=== PATIENT | female | born 1970 | race Caucasian/White ===

== ENCOUNTER → 2021-09-06 10:21 | Outpatient (CLI) | payer OTHER, SELFPAY ==
[2021-09-06 11:33] LABS: COVID19 -Nasal RAPID Negative (Negative)
== END ==
PROVIDERS: Visit Provider Physician Assistant
DX: Z20.822 Contact with and (suspected) exposure to COVID-19 (principal)
CPT/HCPCS: 87635

== ENCOUNTER 2021-09-09 08:49 | Observation (INO) | payer OTHER, SELFPAY ==
[2021-09-05 12:42] VITALS: BMI 37.1
[2021-09-09] VITALS (14 sets, daily range): BP systolic 105–147; BP diastolic 65–97; PULSE 79–98; RESP 12–23; TEMP 35.8–36.6; O2SAT 84–98; BMI 37.1
[2021-09-09] MEDS: LACTATED RINGERS 1,000 ML 42 ML IV ×3 (09:35→15:09)
--- NOTE | 2021-09-09 10:26 | PM.PREOP ---
Pre-operative Note COVID-19 COVID-19 status: Negative Result date/Date tested (Pos, Neg/Pending): 09/07/21 Interval Note History & Physical reviewed/Exam performed by Physician: Yes Changes to H&P: No
[2021-09-09] MEDS: CEFAZOLIN 2 GM/20 ML SYRINGE IV ×2 (11:15→19:00)
--- NOTE | 2021-09-09 11:44 | SUR.OPER ---
Prone on spine table, head in foam head support, padded chest and pelvic supports, gel pad at knees, lower legs supported by pillows; nipples, genitalia and toes free of pressure, arms secured on foam padded arm boards at <90 degrees abduction. Tape over blanket at thigh secured to table.
[2021-09-09] MEDS: BUPIVACAINE LIPOSOME 266 MG/20 ML VIAL INJ (11:51)
[2021-09-09] MEDS: BUPIVACAINE 0.25% (PF) 30 ML, EPINEPHrine 0.3 MG INJ (11:52)
--- NOTE | 2021-09-09 13:43 | DI.RAD.S_ITS ---
PROCEDURE: XR LUMBAR SPINE 2-3V INDICATIONS: L4-5 TLIF TECHNIQUE: 3 fluoroscopic images of the lower lumbar spine. COMPARISON: [facility] Outside Film, CR, XR LUMBAR SPINE WITH OBLIQUES, 04/08/2021, 11:30. FINDINGS: Posterior element fixation hardware with discectomy is seen at L4-5. IMPRESSION: Postsurgical changes detailed above. Dictated by: Saurav Antoine M.D. on 09/09/2021 at 14:26 Approved by: Saurav Antoine M.D. on 09/09/2021 at 14:27
--- NOTE | 2021-09-09 13:52 | PM.OP.1 ---
Operative Date/Time/Diagnoses Date of procedure: 09/09/21 Time of procedure: 11:00 Pre-op diagnosis: 1. L4-5 spinal stenosis with neurogenic claudication 2. Lumbar spondylosis with radiculopathy Post-op diagnosis: same Procedure & Clinicians Procedure: 1. L4-5 Postero-lateral and posterior interbody fusion 2. L4-5 interbody cage placement. 3. L4-5 decompressive laminectomy with bilateral facetecomies 4. L4-5 Posterior non-segmental instrumentation 5. Woodbine of bone marrow from iliac crest 6. Utilization of microsurgical technique and operating microscope Same procedure as scheduled: Yes Indications: Patient has been having chronic back pain and worsening lumbar radiculopathy. Patient failed multiple conservative management with worsening pain weakness and numbness in her lower extremity. Patient has been having difficulty performing activity of daily living. After discussing risks benefits of treatment options, patient elected proceed with surgery. Surgeon: Katarina Brock Chief Fundraising Officer: Janette Tejeda Click Yes if Unassisted: No Anesthesia Type: General Operative Notes Closure Type: primary Specimen(s): none sent Prosthetic devices, grafts, tissues, transplants, or devices: Globus revolve screws, Rise cage Estimated Blood Loss (mL): 50 Blood products transfused: none Procedure in detail: Patient was seen in the preoperative area. Risks and benefits of the surgery was discussed with the patient. Informed consent was obtained from the patient and placed in the chart. Surgical site was marked. Patient was taken to the operative room. General anesthesia was administered. Prophylactic antibiotic was given to the patient less than 30 min before the incision was made. Patient was placed into a prone position on the Dheeraj table. Patient's back was then prepped and draped in the sterile fashion. Time-out was performed at this time. Using AP and lateral C-arm imaging the interval between L4-5 was identified and marked on patient's back. A 2 inch incision 2 in from midline was made on the left side first. The fascia was incised in line with skin incision. Globus MARS retractors was placed inside the incision and docked onto the L4 lamina. Using microsurgical technique and operating microscope, a L4 laminectomy and L4-5 facetectomy was performed using a Kerrison rongeur. Patient was found have severe central and neural foramen stenosis which was fully decompressed after the laminectomy and facetectomy was completed. The disc space at L4-5 was identified. And a total diskectomy was performed at L4-5 level. The endplates were decorticated using a rasp and shaver. The total diskectomy and decortication was performed at L4-5 level in order to to accomplish a L4-5 fusion. The local bone from the laminectomy and facetectomy was saved for local bone grafting. After the total diskectomy and decortication was completed, Trifecta bone graft material was combined with local bone that was harvested earlier. At this time, a separate skin is incision was made over the iliac crest. A Jamshidi needle was inserted into the iliac crest through a separate skin incision. 5 cc of bone marrow aspiration was obtained through the separate skin incision using a Jamshidi needle from the iliac crest. The bone marrow aspiration was combined with local bone and the Trifecta bone grafting material. The bone grafting material was placed into the L4-5 interbody space along with a expandable cage. The cage was expanded to its maximum height using the torque limiting screwdriver. At this time a mirror image incision was made on the right side. The fascia was incised in line with the skin incision. Globus MARS retractor was inserted and docked onto the L4-5 posterolateral gutter. Using the power drill, posterior-lateral decortication was performed at L4-5 level until bleeding cortical bone was identified. The remaining bone grafting material was placed into the L4-5 posterior lateral gutter he order to accomplish posterolateral fusion at the L4-5 level. Using the double C-arm technique, pedicle screws were placed into the L4-5 pedicles bilaterally. This was done by placing the Jamshidi needle into the pedicles, then placing the guidewires over the Jamshidi needle, and finally placing the cannulated screws over the guidewires bilaterally. After the pedicle screws were placed, 2 titanium rods was locked into the heads of the pedicle screws using locking caps and torque limiting screwdriver. After all the hardware was placed, and confirmed with AP and lateral C-arm imaging, the wound was then irrigated with sterile normal saline and packed with Ray-Rex gauze for 3 min to accomplish hemostasis. After the gauze was removed the deep fascia was closed with #1 Vicryl suture. The subcutaneous layer was closed with 2-0 Vicryl. The skin was closed with skin lillian. Patient tolerated the procedure well. There were no complications.
[2021-09-09] MEDS: HYDROMORPHONE 2 MG INJ IV ×3 (14:10→14:45)
[2021-09-09] MEDS: LORazepam 2 MG/ML INJ 0.25 MG IV (14:32)
[2021-09-09] MEDS: hydrOXYzine 50 MG/ML INJ 25 MG IM (15:03)
[2021-09-09] MEDS: OXYCODONE/ACETAMINOPHEN 5/325 TABLET 1 TAB PO ×2 (15:15→15:44)
--- NOTE | 2021-09-09 15:59 | SUR.PHASEI ---
1349 Hrs; Pt arrives breathing unnassisted but bradypneic. Report recieved. Pt placed on 6 L simple mask for sats below 90%.
[2021-09-09] MEDS: OXYCODONE IR 5 MG TABLET 10 MG PO ×2 (16:59→21:07)
[2021-09-09] MEDS: SODIUM CHLORIDE 0.9% 1,000 ML 100 ML IV (16:59)
[2021-09-09] MEDS: HYDROMORPHONE 0.5 MG INJ IV (17:00)
[2021-09-09] MEDS: hydrOXYzine pamoate 25 MG CAPSULE PO (18:11)
[2021-09-09] MEDS: SENNOSIDES 8.6 MG TABLET 17.2 MG PO (21:07)
[2021-09-09] MEDS: DOCUSATE 100 MG CAPSULE PO (21:07)
[2021-09-10] MEDS: hydrOXYzine pamoate 25 MG CAPSULE PO ×5 (00:21→20:23)
[2021-09-10] MEDS: OXYCODONE IR 5 MG TABLET 10 MG PO ×8 (00:21→23:10)
[2021-09-10 00:30] VITALS: BP 107/66; PULSE 67; RESP 17; TEMP 36.2; O2SAT 93
[2021-09-10] MEDS: CEFAZOLIN 2 GM/20 ML SYRINGE IV (02:37)
[2021-09-10 03:15] VITALS: BP 114/66; PULSE 79; RESP 18; TEMP 36.4; O2SAT 96
[2021-09-10] MEDS: SODIUM CHLORIDE 0.9% 1,000 ML 100 ML IV (03:39)
[2021-09-10] MEDS: LEVOTHYROXINE 112 MCG TABLET PO (06:31)
[2021-09-10] MEDS: PANTOPRAZOLE DR 20 MG TABLET PO (06:31)
[2021-09-10 08:00] VITALS: BP 116/69; PULSE 81; RESP 17; TEMP 36.7; O2SAT 96
--- NOTE | 2021-09-10 08:09 | PM.PNPO.1 ---
Subjective Subjective Date Patient Seen: 09/10/21 Time Patient Seen: 08:09 Interval history: The patient is complaining of moderate low back pain this morning. She notes at the current pain medications are working well. She has had a longstanding history of mobility issues and has not worked with physical therapy yet. Denies any new numbness or tingling. No nausea or vomiting. No fevers, chills, night sweats. Exam Vital Signs (past 8 hours): - 09/10/21 00:30 09/10/21 03:15 Temperature 97.2 F L 97.5 F L Pulse Rate 67 79 Respiratory Rate 17 18 Blood Pressure 107/66 114/66 Pulse Oximetry 93 96 Oxygen Delivery Method Room Air Oxygen Flow Rate 0 Narrative Exam Narrative: Pleasant 51-year-old female, resting comfortably in bed, no acute distress. Bilateral lower extremity motor functions: Grossly intact to light touch, motor function is grossly Intact, calves are soft and nontender to palpation PFSH Medical History Easy bruisability GERD (gastroesophageal reflux disease) Hearing impaired Hypothyroid Osteoarthritis PONV (postoperative nausea and vomiting) Pre-diabetes Sciatica Spinal stenosis of lumbar region Surgical History Hx of dilation and curettage Hx of thumb surgery Status post unicompartmental knee replacement, right Social History household members: spouse and children Smoking Status: Former smoker alcohol intake: current Assessment & Plan Post-op Postoperative Procedures: Procedures Operation Date: 09/09/21 10:45 Actual Procedure Side Surgeon p L4-5 TLIF Katarina Brock MD Postoperative day: 1 Postoperative status narrative: Stable status post TLIF Postoperative plan narrative: -mobilize with PT. Limit bending, lifting, twisting. Weightbearing as tolerated with front wheel walker -continue with current pain regimen -possible DC home today, depending on physical therapy clearance and pain control. Will check on her later this afternoon Quality VTE Deep Vein Thrombosis/Pulmonary Embolism Present on Admission: No
[2021-09-10] MEDS: DOCUSATE 100 MG CAPSULE PO ×2 (08:50→20:23)
[2021-09-10] MEDS: HYDROMORPHONE 0.5 MG INJ IV ×3 (08:50→22:53)
--- NOTE | 2021-09-10 09:46 | PT.IIE ---
Current Diagnoses Spinal stenosis, lumbar region with neurogenic claudication (09/09/21) Surgery Performed Operation Date: 09/09/21 10:45 Actual Procedures p L4-5 TLIF - Katarina Brock MD Medical History (Last Reviewed 09/10/21 @ 08:11 by Janette Tejeda PA-C) Easy bruisability GERD (gastroesophageal reflux disease) Hearing impaired Hypothyroid Osteoarthritis PONV (postoperative nausea and vomiting) Pre-diabetes Sciatica Spinal stenosis of lumbar region Physical Therapy Inpatient Evaluation/Re-Eval M1 PT/OT-IP Prior Functional Status Start: 09/10/21 12:48 Freq: NEEDED Status: Active Protocol: Document 09/10/21 09:46 AB (Rec: 09/10/21 12:58 AB [email or web address]) Medical Review Prior Functional Status Medical History Reviewed Yes Communication able to make needs known Mobility and Gait pt stated that she is modified independent with all mobilities and ambulation using SPC but uses 2 SPC at night Social History Household Members spouse,children Living Arrangements House Number of Floors (Floors) Two Floors Number of Stairs To Enter/Railing? 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 Additional Social History Comment pt has a recliner couch that she plans to sleep on for ~ 1 week after d/c pt works as a [employer]a M2 PT-IP Current Condition Start: 09/10/21 12:48 Freq: NEEDED Status: Active Protocol: Document 09/10/21 09:46 AB (Rec: 09/10/21 12:58 AB [email or web address]) Physical Therapy Current Condition Current Condition Evaluation Date 09/10/21 Treatment Diagnosis s/p L4-5 TLIF; difficulty in walking Onset Date 09/09/21 M3 PT-IP Subjective Start: 09/10/21 12:48 Freq: NEEDED Status: Active Protocol: Document 09/10/21 09:46 AB (Rec: 09/10/21 12:58 AB [email or web address]) Subjective Physical Therapy Visit Type Type Initial Evaluation Visit Start Time 09:46 Visit Stop Time 10:17 Total Visit Minutes 31 Number of COMPOSITE TECHNICIAN Visits 0 Physical Therapy Visit Comments Patient Comments agreeable to do PT Therapy Pain Assessment Pain When Pain Assessed At Rest Pain Present Pain Present Pain Reported Location back Intensity 10 Scale Used Numeric (0 - 10) Pain Management Techniques Distraction,Modification of Treatment,Re-positioning, Timing of Activity with Medications M4 PT-IP Mobility and Gait Start: 09/10/21 12:48 Freq: NEEDED Status: Active Protocol: Document 09/10/21 09:46 AB (Rec: 09/10/21 12:58 AB [email or web address]) PT-Bed Mobility Assessment Rolling Level of Assist Maximal Assistance Supine to Sit Supine to Sit Maximum Assistance Sit to Supine Sit to Supine Maximum Assistance PT-Transfer Assessment Sit to and From Stand Sit to and from Stand Moderate Assistance,Maximum Assistance,1 Person Assistance ,Use of Upper Extremities Equipment Transfer Assistive Device Gait Belt,Front Wheeled Walker Orthotic/Prosthetic Devices or Brace: No Transfers Transfer Destination Bed Transfer Technique ambulated using FWW Transfer Ability Level of Assist Moderate Assistance,Maximum Assistance,1 Person Assistance ,Use of Upper Extremities Comments Mobility Comments pt using the toilet when PT came in. pt completed sit to stand from the toilet using grab bar max A and max cues. ambulated to EOB mod to max A and max cues. with shuffling gait. c/o 10/10 pain and L sided sciatica. pt is aware of her back precautions. completed sit to stand from EOB mod to max A and max cues and ambulated in room using FWW ~ 30 ft mod to max A. presents with decrease LE elevation and heavy UE use on FWW for support. ambulated back to EOB. demonstrated sit <>supine max A and cues. pt requested to just stay in bed and completed sit to supine max A and cues. positioned pt in bed. call light and table placed within reach. Caregiver training set up at 1 /130 pm this afternoon. Gait Assessment Gait Gait Assistance Required: Moderate Assistance,Maximum Assistance,1 Person Assist Distance (Feet) 30 Able to Maintain Weight Bearing Status Yes During Gait Assistive Devices Assistive Device Gait Belt,Front Wheeled Walker Orthotic/Prosthetic Devices or Brace: No Gait Deviations General Gait Pattern Antalgic,Decreased Stride Length,Decreased Feet Clearance,Step-to Gait Factors Limiting Gait Function Factors Limiting Gait Function Decreased Activity Tolerance, Decreased Strength,Limited Range of Motion,Pain,Poor Balance,Poor Safety Awareness PT-Balance Assessment Sitting Balance and Reactions Static Sitting Balance Ability Good Dynamic Sitting Balance Ability Good Standing Balance and Reactions Static Standing Balance Ability Fair Dynamic Standing Balance Ability Poor Device Used FWW M5 PT-IP Objective Assessments Start: 09/10/21 12:48 Freq: NEEDED Status: Active Protocol: Document 09/10/21 09:46 AB (Rec: 09/10/21 12:58 AB [email or web address]) Orientation Orientation/Cognition Level of Alertness Alert Orientation Name,Place,Situation Language Function Ability No Deficits Noted Safety Awareness Decreased Safety Awareness Memory Description Short Term Impaired Gross Range of Motion Lower Extremity ROM Assessment Within Functional Limits Strength Lower Extremity Strength Assessment Bilaterally Impaired Comments Strength Comments LLE: 3/5 RLE 4-/5 Sensation Assessment Sensation Gross Sensation WNL Muscle Tone Muscle Tone WNL Yes M6 PT-IP Treatment Start: 09/10/21 12:48 Freq: NEEDED Status: Active Protocol: Document 09/10/21 09:46 AB (Rec: 09/10/21 12:58 AB [email or web address]) Physical Therapy Treatment Education Education Provided Precautions,Weight Bearing Status,Post-Op Packet,Safety M7 PT-IP Assessment and Plan Start: 09/10/21 12:48 Freq: NEEDED Status: Active Protocol: Document 09/10/21 09:46 AB (Rec: 09/10/21 12:58 AB [email or web address]) PT Summary Assessment and Plan Potential Rehabilitation Potential Good Status of Condition at Evaluation Evolving Summary Impairments Pain,ROM,Strength,Balance, Coordination,Sensation,Tone, Cognition,Bed Mobility, Transfers,Gait,Activity Tolerance Assessment Summary pt requirng mod to max A with mobility using FWW. pt plans to go home and spouse to assist her. caregiver training set up for this afternoon ~ 1/130 pm. will continue to assess progress. pt also needs to complete stair climbing training prior to d/c. Goals Bed Mobility Goal Standby Assistance Transfer Goal Standby Assistance,Front Wheeled Walker Gait Goal Standby Assistance,Front Wheel Walker Gait Distance 200 Other Goals up/down 3 steps using SPC/BROOM STITCHER min A Days to Meet Goals 10 Frequency of Treatment Frequency Of Treatment Twice a Day Treatment Plan Physical Therapy Treatment Plan Bed Mobility Training,Transfer Training,Gait Training, Therapeutic Exercise,Balance Retraining,Post Op Education, Discharge Planning,Hot or Cold Pack,Neuromuscular Re-ed, Coordination Retraining,Manual Therapy Precautions Lumbar Precautions Log Roll,No Twisting,Limit Bending,Lifting Restriction of 10 lbs,Gait Belt above Incisional Area Recommendations To Nursing Amount of Assist Needed 1 Person Assist Discharge Recommendations PT Discharge Recommendations Home with 24/ Assist Available,Home Health Transportation Needs at Discharge Private Vehicle
[2021-09-10 11:00] VITALS: BP 116/74; PULSE 90; RESP 18; TEMP 37.1; O2SAT 98
[2021-09-10] MEDS: ACETAMINOPHEN 325 MG TABLET 650 MG PO (11:14)
--- NOTE | 2021-09-10 13:30 | PT.IPTN ---
Current Diagnoses Spinal stenosis, lumbar region with neurogenic claudication (09/09/21) Surgery Performed Operation Date: 09/09/21 10:45 Actual Procedures p L4-5 TLIF - Katarina Brock MD Physical Therapy Treatment Note M2 PT-IP Current Condition Start: 09/10/21 12:48 Freq: NEEDED Status: Active Protocol: Document 09/10/21 09:46 AB (Rec: 09/10/21 12:58 AB [email or web address]) Physical Therapy Current Condition Current Condition Evaluation Date 09/10/21 Treatment Diagnosis s/p L4-5 TLIF; difficulty in walking Onset Date 09/09/21 M3 PT-IP Subjective Start: 09/10/21 12:48 Freq: NEEDED Status: Active Protocol: Document 09/10/21 13:30 AB (Rec: 09/10/21 15:23 AB [email or web address]) Subjective Physical Therapy Visit Type Type Treatment Note Visit Start Time 13:30 Visit Stop Time 14:15 Total Visit Minutes 45 Number of SUPERVISOR BRAIDING Visits 0 Physical Therapy Visit Comments Patient Comments spouse in room with pt; pt is agreeable to do PT Therapy Pain Assessment Pain When Pain Assessed At Rest Pain Present Pain Present Pain Reported Location back Intensity 4 Scale Used 09/06 with mobility Pain Management Techniques Distraction,Modification of Treatment,Re-positioning, Timing of Activity with Medications M4 PT-IP Mobility and Gait Start: 09/10/21 12:48 Freq: NEEDED Status: Active Protocol: Document 09/10/21 13:30 AB (Rec: 09/10/21 15:23 AB [email or web address]) PT-Bed Mobility Assessment Rolling Level of Assist Minimal Assistance Supine to Sit Supine to Sit Minimal Assistance Sit to Supine Sit to Supine Minimal Assistance PT-Transfer Assessment Sit to and From Stand Sit to and from Stand Minimal Assistance Equipment Transfer Assistive Device Gait Belt,Front Wheeled Walker Orthotic/Prosthetic Devices or Brace: No Transfers Transfer Destination Toilet Transfer Technique ambulated Transfer Ability Level of Assist Minimal Assistance Comments Mobility Comments caregiver training conducted. educated on pt's back precautions/log roll bed mobility, use of safety belt and how to assist pt. pt completed log roll supine to sit min A and cued spouse on how to assist pt. spouse was able to put safety belt on pt. assisted pt with sit to stand and ambulated ~ 20 ft to the toilet [facility]. spouse was able to assist pt with ambulation and toileting needs . pt ambulated back to the EOB using FWW with spouse assisting. educated pt and spouse on stair climbing using SPC and SENIOR DATASTAGE DEVELOPER. pt ambulated to the platform step using FWW min A from spouse. completed up/down platform step x 2 sets mod to max A and max cues. pt ambulated back to the room using FWW min A. completed sit to supine min A with LE elevation and spouse assisted. positioned pt in bed. call light and table placed within reach. PT cued on how to assist pt. set up another caregiver training tomorrow at 930 am. Gait Assessment Gait Gait Assistance Required: Minimum Assistance Distance (Feet) 20 Able to Maintain Weight Bearing Status Yes During Gait Assistive Devices Assistive Device Gait Belt,Front Wheeled Walker Orthotic/Prosthetic Devices or Brace: No Gait Deviations General Gait Pattern Decreased Stride Length, Decreased Feet Clearance,Step- to Gait Factors Limiting Gait Function Factors Limiting Gait Function Decreased Activity Tolerance, Decreased Strength,Limited Range of Motion,Pain,Poor Balance,Poor Safety Awareness Stair Climbing Assessment Evaluation Level of Assist On Stairs Moderate Assistance,Maximal Assistance,1 Person Assistance Devices Stair Climbing Assistive Devices Straight Cane Technique/Endurance Stair Climbing Direction Ascend and Descend Stair Climbing Technique Step to Step Number of Steps Climbed 1 Stair Climbing Set # Repetitions (reps) 2 M5 PT-IP Objective Assessments Start: 09/10/21 12:48 Freq: NEEDED Status: Active Protocol: Document 09/10/21 09:46 AB (Rec: 09/10/21 12:58 AB [email or web address]) Orientation Orientation/Cognition Level of Alertness Alert Orientation Name,Place,Situation Language Function Ability No Deficits Noted Safety Awareness Decreased Safety Awareness Memory Description Short Term Impaired Gross Range of Motion Lower Extremity ROM Assessment Within Functional Limits Strength Lower Extremity Strength Assessment Bilaterally Impaired Comments Strength Comments LLE: 3/5 RLE 4-/5 Sensation Assessment Sensation Gross Sensation WNL Muscle Tone Muscle Tone WNL Yes M6 PT-IP Treatment Start: 09/10/21 12:48 Freq: NEEDED Status: Active Protocol: Document 09/10/21 13:30 AB (Rec: 09/10/21 15:23 AB [email or web address]) Physical Therapy Treatment Education Education Provided Precautions,Safety M7 PT-IP Assessment and Plan Start: 09/10/21 12:48 Freq: NEEDED Status: Active Protocol: Document 09/10/21 13:30 AB (Rec: 09/10/21 15:23 AB [email or web address]) PT Summary Assessment and Plan Potential Rehabilitation Potential Good Summary Impairments Pain,ROM,Strength,Balance, Coordination,Sensation,Tone, Cognition,Bed Mobility, Transfers,Gait,Activity Tolerance Progress Towards Goals Slow Progress due to Pain Assessment Summary caregiver training initiated but further training is needed and set up for tomorrow at ~ 930 am. will continue to assess progress. pt continues to have increase LBP affecting mobility. Goals Bed Mobility Goal Standby Assistance Transfer Goal Standby Assistance,Front Wheeled Walker Gait Goal Standby Assistance,Front Wheel Walker Gait Distance 200 Other Goals up/down 3 steps using SPC/SENIOR DATASTAGE DEVELOPER min A Days to Meet Goals 10 Frequency of Treatment Frequency Of Treatment Twice a Day Treatment Plan Physical Therapy Treatment Plan Bed Mobility Training,Transfer Training,Gait Training, Therapeutic Exercise,Balance Retraining,Post Op Education, Discharge Planning,Hot or Cold Pack,Neuromuscular Re-ed, Coordination Retraining,Manual Therapy Precautions Lumbar Precautions Log Roll,No Twisting,Limit Bending,Lifting Restriction of 10 lbs,Gait Belt above Incisional Area Recommendations To Nursing Amount of Assist Needed 1 Person Assist Discharge Recommendations PT Discharge Recommendations Home with 20/04 Assist Available,Home Health Transportation Needs at Discharge Private Vehicle
--- NOTE | 2021-09-10 14:17 | OT.IPNOTE ---
Pt just completed caregiver training with PT and pt too tired to get up again. Able to go over ADl equipment needs with pt. To see pt tomorrow for caregiver training for showering and dressing needs with her . NO charge.
[2021-09-10 15:00] VITALS: BP 112/64; PULSE 87; RESP 17; TEMP 36.9; O2SAT 98
--- NOTE | 2021-09-10 16:48 | CM.DANOTE ---
DCP/Assessment: Reviewed chart. Patient is a 51yr old female admitted to [facility] for elective spine [facility]. PCP is Dr. Marquez. Primary payor is 1)Chinyere 2)Kelly. Met with patient and spouse at bedside explained CM/SW role. Patient reports that she hopes to d/c home tomorrow. Patient indicates that spouse has caregiver training scheduled tomorrow between 9:30-10:00am tomorrow with therapy. Initially patient reports that she thought she might be able to d/c home today. However, patient reports a lot of pain today and required more therapy prior to d/c. Do not anticipate any barriers to d/c tomorrow. Patient has all needed DME. P: Home when stable. D/C expected on 09-11-21 after caregiver training with therapy. KJS Discharge Planning/Care Management CM Discharge Assessment Start: 09/10/21 16:46 Freq: Status: Active Protocol: Document 09/10/21 16:47 KJS (Rec: 09/10/21 16:48 KJS [id number]) Discharge Planning Assessment Assigned Client Renewal Specialist RAFAEL Yang Contact Information Justus Garza (spouse) ph# Advance Directives? No History Provided By Patient,Significant Other, Medical Record Prior Living Arrangements House Household Members spouse,children Type of transporation used prior to Drives own vehicle admit Independent with ADL's Yes Is patient alert and oriented? Yes Caregiver for Another No DME Already Rented / Owned FWW / Walker,Cane Barriers to Discharge No Discharge Plan Home Transportation Arrangement Family to provide transport. Whiteboard Updated in Patient Room with Yes name and ext. # of Client Renewal Specialist Review Status In Process Next Review Type Continued Stay Review Pre-Anesthesia Assessment Start: 09/05/21 12:42 Freq: Status: Complete Protocol: Document 09/05/21 12:42 CAB (Rec: 09/05/21 13:20 CAB [id number]) Pre-Anesthesia Assessment Preferred Name Renu Patient Information Reviewed Via Phone Assessment Assessment Completed With Patient H&P Completed Within 30 Days No: Not available at time of assess Diagnostic Results BMP/CMP,CBC Comment Outside labs/EKG scanned in, COVID screen @ [facility] 09/06/21 Primary Care Provider Chago Marquez Seen Specialist in Last 12 Months Yes Specialist Seen Orthopedist Primary Language Taiwanese Telemetry Technician Required No Height 167.64 cm Weight 104.326 kg Body Mass Index (BMI) 37.1 Hearing Ability Hard of Hearing Visual Assist None Dentition Type Teeth, Natural Present Barriers to Learning None Hx Anesthesia Reactions No Hx Family Anesthesia Reaction No Hx Malignant Hyperthermia No Hx Blood Transfusions No Anesthesia Review Requested No alcohol intake current alcohol intake frequency holidays/special occasions only Smoking Status Former smoker how long ago did patient quit smoking Quit approx 10 years ago Substance Use Type does not use Musculoskeletal Symptoms Abnormal Gait,Back Pain, Difficulty Walking,Joint Pain, Radiating Pain into Limb History of Falling (Recent or History of No ) Patient is completely paralyzed or No completely immobile Prosthesis or Orthotic Device Cane Mental Status Oriented to own ability Is patient on oxygen? No Does patient have FISHMAN/SOB No Hx Sleep Apnea No Currently Taking a Beta Beena No Hx Chest Pain No Hx SOB No Hx Syncope or Dizziness No Anti-Coagulant Therapy No Has a Criminology Professor No Cardiac Testing No Hx Pacemaker/ICD No Pacemaker Rep Required? No Cardiac Clearance Received Not Applicable Diet Type At Home Regular dysphagia No Gastrointestinal Symptoms Reflux Bladder Pattern Urgency Urinary Catheter Present No Hx Urinary Self Catheterization No Diabetes No: Pre-diabetes HgbA1C 5.6 Date 12/04/20 Patient No Lactating No Hx Drug Resistant Organism No Presence of External or Internal Medical Yes: Partial right knee Devices Have you had any close contact with No someone diagnosed with COVID-19? Received a COVID vaccine? No Received all doses? No Marital Status Lives With spouse,children Prior Living Arrangements House Number of Floors (Floors) Two Floors Support System Child/Children,Family,Spouse Does the Patient Have Assistance After Yes Surgery Patient Discharge Plan Description Return Home Comment Pt advised 1-2 night length of stay per surgeon Feels Safe in Current Environment Yes Been Physically Hurt or Threatened By a No Person in Current Environment Do you have thoughts of harming yourself None or others? Are you currently considering suicide? No Do you have a plan to hurt yourself or No Plan others? Do You Have Any Spiritual Beliefs That No May Affect Your HC Choices? Do You Have Any Cultural Practices That No May Affect Your HC Choices? Comment Pentecostal Who Can We Speak to About Patient's Care Family, friends Identifying Code for Release of Patient Declines to issue Information Health Care Proxy/Next of Kin Basilio () Health Care Proxy Emergency Contact Name Basilio () Emergency Contact Advance Directives? No Power of Diabetes Trainer No PAC Instructions Durable medical equipment, Medications to take/avoid, Nasal antibiotic,No ETOH/ petroleum product on skin DOS, NPO,Pre-surgical wash,Sensory aids,Sturdy shoes/comfortable clothes,Do not bring valuables and remove jewelry
[2021-09-10 19:00] VITALS: BP 127/73; PULSE 88; RESP 16; TEMP 36.8; O2SAT 94
[2021-09-10] MEDS: SENNOSIDES 8.6 MG TABLET 17.2 MG PO (20:22)
[2021-09-11 01:21] VITALS: BP 117/65; PULSE 108; RESP 18; O2SAT 93
[2021-09-11] MEDS: OXYCODONE IR 5 MG TABLET 10 MG PO ×4 (02:04→13:48)
[2021-09-11] MEDS: hydrOXYzine pamoate 25 MG CAPSULE PO (02:04)
[2021-09-11 03:19] VITALS: BP 126/62; PULSE 115; RESP 17; TEMP 37.2; O2SAT 93
[2021-09-11] MEDS: HYDROMORPHONE 0.5 MG INJ IV ×2 (04:55→08:22)
[2021-09-11] MEDS: PANTOPRAZOLE DR 20 MG TABLET PO (04:56)
[2021-09-11] MEDS: LEVOTHYROXINE 112 MCG TABLET PO (04:56)
--- NOTE | 2021-09-11 08:17 | PM.PNPO.1 ---
Subjective Subjective Date Patient Seen: 09/11/21 Time Patient Seen: 08:18 Interval history: Patient's pain is been moderate to severe. Denies fever or chills. No nausea or vomiting. Exam Vital Signs (past 8 hours): - 09/11/21 01:21 09/11/21 03:19 Temperature 98.9 F Pulse Rate 108 H 115 H Respiratory Rate 18 17 Blood Pressure 117/65 126/62 Pulse Oximetry 93 93 Oxygen Delivery Method Room Air Oxygen Flow Rate 0 Narrative Exam Narrative: 51-year-old female resting comfortably in bed in no apparent distress. Motor functions intact bilateral lower extremities. Sensation grossly intact to light touch bilateral lower extremities. [facility], [facility] Medical History Easy bruisability GERD (gastroesophageal reflux disease) Hearing impaired Hypothyroid Osteoarthritis PONV (postoperative nausea and vomiting) Pre-diabetes Sciatica Spinal stenosis of lumbar region Surgical History Hx of dilation and curettage Hx of thumb surgery Status post unicompartmental knee replacement, right Social History household members: spouse and children Smoking Status: Former smoker alcohol intake: current Assessment & Plan Post-op Postoperative Procedures: Procedures Operation Date: 09/09/21 10:45 Actual Procedure Side Surgeon p L4-5 TLIF Katarina Brock MD Postoperative status: marginal pain control Postoperative plan narrative: Mobilize with physical therapy, limit bending, lifting, twisting Multimodal pain management Disposition possibly later today or tomorrow depending on mobility with physical therapy Quality VTE Deep Vein Thrombosis/Pulmonary Embolism Present on Admission: No
[2021-09-11] MEDS: DOCUSATE 100 MG CAPSULE PO (08:23)
[2021-09-11 09:00] VITALS: BP 120/70; PULSE 117; RESP 16; TEMP 36.4; O2SAT 93
--- NOTE | 2021-09-11 09:40 | PT.IPTN ---
Current Diagnoses Spinal stenosis, lumbar region with neurogenic claudication (09/09/21) Surgery Performed Operation Date: 09/09/21 10:45 Actual Procedures p L4-5 TLIF - Katarina Brock MD Physical Therapy Treatment Note M2 PT-IP Current Condition Start: 09/10/21 12:48 Freq: NEEDED Status: Active Protocol: Document 09/10/21 09:46 AB (Rec: 09/10/21 12:58 AB [id number]) Physical Therapy Current Condition Current Condition Evaluation Date 09/10/21 Treatment Diagnosis s/p L4-5 TLIF; difficulty in walking Onset Date 09/09/21 M3 PT-IP Subjective Start: 09/10/21 12:48 Freq: NEEDED Status: Active Protocol: Document 09/11/21 09:40 AB (Rec: 09/11/21 13:30 AB [id number]) Subjective Physical Therapy Visit Type Type Treatment Note Visit Start Time 09:40 Visit Stop Time 10:30 Total Visit Minutes 50 Number of DEPARTMENT COORDINATOR Visits 0 Physical Therapy Visit Comments Patient Comments agreeable to do PT Therapy Pain Assessment Pain When Pain Assessed At Rest Pain Present Pain Present Pain Reported Location Left Leg Intensity 10 Scale Used c/o LLE sciatic pain 10/10 M4 PT-IP Mobility and Gait Start: 09/10/21 12:48 Freq: NEEDED Status: Active Protocol: Document 09/11/21 09:40 AB (Rec: 09/11/21 13:30 AB [id number]) PT-Bed Mobility Assessment Rolling Type of Rolling Log Rolling Level of Assist Minimal Assistance Supine to Sit Supine to Sit Minimal Assistance Scooting Scooting to Edge of Bed Moderate Assistance PT-Transfer Assessment Sit to and From Stand Sit to and from Stand Minimal Assistance,1 Person Assistance,Use of Upper Extremities Equipment Transfer Assistive Device Gait Belt,Front Wheeled Walker Orthotic/Prosthetic Devices or Brace: No Transfers Transfer Destination Toilet Transfer Technique ambulated Transfer Ability Level of Assist Moderate Assistance,1 Person Assistance,Use of Upper Extremities Comments Mobility Comments pt supine in bed. spouse in room for caregiver training. spouse assisted pt with bed mobility. pt requires increase time to complete all tasks and c/o increase LLE sciatic pain. pt able to instruct spouse on what assistance she needs. spouse assisted pt with toilet transfers using FWW min to mod A and assisted pt with toileting needs. pt ambulated back to the chair using fWW with spouse assisting. BP: 127/70 OH 112 O2 sat 92-94%. pt stated that she is having more LLE sciatic pain and worse than before surgery. informed nurse. spouse assisted pt again for sit to stand from chair and pt ambulated out of the room ~ 30 ft using FWW with spouse assiting and completed up/down platform step using SPC + SUPERVISOR PHOSPHORIC ACID with spouse assiting . completed x 2 sets. pt ambulated back to the room using FWW with spouse assisting. set up on chair for breakfast. call light and table placed within reach. pt and spouse without further concerns. Gait Assessment Gait Gait Assistance Required: Minimum Assistance,Moderate Assistance,1 Person Assist Distance (Feet) 30 Able to Maintain Weight Bearing Status Yes During Gait Assistive Devices Assistive Device Gait Belt,Front Wheeled Walker Orthotic/Prosthetic Devices or Brace: No Gait Deviations General Gait Pattern Antalgic,Decreased Stride Length,Decreased Feet Clearance,Step-to Gait Factors Limiting Gait Function Factors Limiting Gait Function Decreased Activity Tolerance, Decreased Strength,Limited Range of Motion,Pain,Poor Balance,Poor Safety Awareness Stair Climbing Assessment Evaluation Level of Assist On Stairs Moderate Assistance,Maximal Assistance,1 Person Assistance Devices Stair Climbing Assistive Devices Straight Cane Technique/Endurance Stair Climbing Direction Ascend and Descend Stair Climbing Technique Step to Step Number of Steps Climbed 1 Stair Climbing Set # Repetitions (reps) 2 Comments Stair Climbing Comments pls refer to mobility section for details M5 PT-IP Objective Assessments Start: 09/10/21 12:48 Freq: NEEDED Status: Active Protocol: Document 09/10/21 09:46 AB (Rec: 09/10/21 12:58 AB [id number]) Orientation Orientation/Cognition Level of Alertness Alert Orientation Name,Place,Situation Language Function Ability No Deficits Noted Safety Awareness Decreased Safety Awareness Memory Description Short Term Impaired Gross Range of Motion Lower Extremity ROM Assessment Within Functional Limits Strength Lower Extremity Strength Assessment Bilaterally Impaired Comments Strength Comments LLE: 3/5 RLE 4-/5 Sensation Assessment Sensation Gross Sensation WNL Muscle Tone Muscle Tone WNL Yes M6 PT-IP Treatment Start: 09/10/21 12:48 Freq: NEEDED Status: Active Protocol: Document 09/11/21 09:40 AB (Rec: 09/11/21 13:30 AB [id number]) Physical Therapy Treatment Education Education Provided Precautions,Safety M7 PT-IP Assessment and Plan Start: 09/10/21 12:48 Freq: NEEDED Status: Active Protocol: Document 09/11/21 09:40 AB (Rec: 09/11/21 13:30 AB [id number]) PT Summary Assessment and Plan Potential Rehabilitation Potential Good Summary Impairments Pain,ROM,Strength,Balance, Coordination,Sensation,Tone, Cognition,Bed Mobility, Transfers,Gait,Activity Tolerance Assessment Summary caregiver training conducted and spouse was able to assist pt with mobility. pt continues to c/o increase LLE pain affecting activity tolerance and mobility. pt plans to go home with spouse to assist her. pt may go home when medically stable. Goals Bed Mobility Goal Standby Assistance Transfer Goal Standby Assistance,Front Wheeled Walker Gait Goal Standby Assistance,Front Wheel Walker Gait Distance 200 Other Goals up/down 3 steps using SPC/SUPERVISOR PHOSPHORIC ACID min A Days to Meet Goals 10 Frequency of Treatment Frequency Of Treatment Twice a Day Treatment Plan Physical Therapy Treatment Plan Bed Mobility Training,Transfer Training,Gait Training, Therapeutic Exercise,Balance Retraining,Post Op Education, Discharge Planning,Hot or Cold Pack,Neuromuscular Re-ed, Coordination Retraining,Manual Therapy Precautions Lumbar Precautions Log Roll,No Twisting,Limit Bending,Lifting Restriction of 10 lbs,Gait Belt above Incisional Area Recommendations To Nursing Amount of Assist Needed 1 Person Assist Discharge Recommendations PT Discharge Recommendations Home with 20/04 Assist Available,Home Health Transportation Needs at Discharge Private Vehicle
--- NOTE | 2021-09-11 12:04 | OT.IP.EVAL ---
Current Diagnoses Spinal stenosis, lumbar region with neurogenic claudication (09/09/21) Surgery Performed Operation Date: 09/09/21 10:45 Actual Procedures p L4-5 TLIF - Katarina Brock MD Past Medical History (Last Reviewed 09/11/21 @ 13:49 by Marcellus Elizabeth PA-C) Easy bruisability GERD (gastroesophageal reflux disease) Hearing impaired Hx of dilation and curettage Hx of thumb surgery Hypothyroid Osteoarthritis PONV (postoperative nausea and vomiting) Pre-diabetes Sciatica Spinal stenosis of lumbar region Status post unicompartmental knee replacement, right Surgical History (Last Reviewed 09/11/21 @ 13:49 by Marcellus Elizabeth PA-C) Hx of dilation and curettage Hx of thumb surgery Status post unicompartmental knee replacement, right Occupational Therapy Inpatient Evaluation/Re-Eval M1 PT/OT-IP Prior Functional Status Start: 09/10/21 12:48 Freq: NEEDED Status: Active Protocol: Document 09/11/21 11:02 [facility] (Rec: 09/11/21 14:09 [facility] [id number]) Medical Review Prior Functional Status Medical History Reviewed Yes Communication able to make needs known Mobility and Gait pt stated that she is modified independent with all mobilities and ambulation using SPC but uses 2 SPC at night Activities of Daily Living and IADL's Pt had pain but able to do her ADL needs prior, but had difficulty for her hygiene after toileting needs. Social History Household Members spouse,children Living Arrangements House Number of Floors (Floors) Two Floors Number of Stairs To Enter/Railing? 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 M2 OT-IP Current Condition Start: 09/11/21 13:48 Freq: Status: Active Protocol: Document 09/11/21 11:02 [facility] (Rec: 09/11/21 14:09 [facility] [id number]) Occupational Therapy Current Condition Current Condition Evaluation Date 09/11/21 Treatment Diagnosis S/p L4-5 TLIF, decreased mobility Diagnosis Onset Date 09/09/21 Post Operative Precautions Lumbar Precautions Log Roll,No Twisting,Limit Bending,Lifting Restriction of 10 lbs,Gait Belt above Incisional Area M3 OT- IP Subjective and Pain Start: 09/11/21 13:48 Freq: Status: Active Protocol: Document 09/11/21 11:02 [facility] (Rec: 09/11/21 14:09 [facility] [id number]) OT- Subjective Occupational Therapy Visit Type Type Initial Evaluation Visit Start Time 11:02 Visit Stop Time 12:04 Total Visit Minutes 62 Occupational Therapy Visit Comments Patient Comments Pt and agreed caregiver training for shower needs. Patient/Caregiver Goals To go home. OT Pain Assessment Pain When Pain Assessed During Mobility Pain Present Pain Present Denied Pain M4 OT- IP ADL's Start: 09/11/21 13:48 Freq: Status: Active Protocol: Document 09/11/21 11:02 [facility] (Rec: 09/11/21 14:09 [facility] [id number]) OT [id number] General Evaluation Self-Feeding Ability Independent OT ADL-Grooming General Evaluation Grooming Ability Standby Assistance Areas Needing Assistance Retrieving/Set-up of Grooming Items Comments OT Grooming Comments Able to do while seated in the recliner. OT ADL-Oral Care Comments Oral Care Comments Educated best to spit into a cup to best follow her back precautions. OT ADL-Dressing Comments OT Dressing Comments At this time pt's to assist with her needs. Pt has a flanging machine operator at home to assist. OT ADL-Toileting Comments OT Toileting Comments Pt unable to reach to wipe and will need assist , educated pt on equipment of toilet paper aid or bidet. OT ADL-Bathing Bathing Type Bathing Type Shower General Evaluation Bathing Ability Maximal Assistance Areas Needing Assistance Wash/Dry Back,Wash/Dry Perineal Area,Wash/Dry Lower Extremities Devices Bathing Equipment Hand Held Shower Sprayer, Shower Chair with Arms Comments OT Bathing Comments Pt would benefit from grab bars at home for the shower and a shower chair with armrests. Able to show pt's how to assist pt to come to stand from her hips if needed while in the shower, especially if the gait belt is not on. Otherwise maybe easier to do perineal care while standing in front of the sink until pt is stronger. M5 OT- IP IADL's Start: 09/11/21 13:48 Freq: Status: Active Protocol: Document 09/11/21 11:02 [facility] (Rec: 09/11/21 14:09 [facility] [id number]) OT-Instrumental Activities of Daily Living Home Safety Awareness Home Safety Comments Pt's to assist with all her needs at home. M6 OT- IP Functional Cognition Start: 09/11/21 13:48 Freq: Status: Active Protocol: Document 09/11/21 11:02 [facility] (Rec: 09/11/21 14:09 [facility] [id number]) Cognitive Factors Limiting Selfcare Function Cognitive Ability Level of Alertness Alert Patient Orientation Name,Place,Situation Attention Span Ability Capable of Focused Attention, Capable of Sustained Attention Ability to Follow Commands Able to Follow One Step Commands Cognitive Comments Cognitive Assessment Comments Pt able to follow back precautions during ADL and mobility needs. Pt needing cues to reach back to surfaces before sitting. M7 OT- IP Mobility and Balance Start: 09/11/21 13:48 Freq: Status: Active Protocol: Document 09/11/21 11:02 [facility] (Rec: 09/11/21 14:09 [facility] [id number]) OT-Transfer Assessment Sit to and From Stand Sit to and from Stand Moderate Assistance Transfers Transfer Ability Minimal Assistance,Moderate Assistance Technique Transfer Destination Chair,Shower Stall,Toilet Transfer Technique Stand Step Pivot Devices Transfer Assistive Devices Gait Belt,Front Wheeled Walker Comments Mobility Comments Pt needing FEI to MOD/MAX A to stand. Pt's able to safely assist pt to gonsalo/doff the gait belt and assist for transfers. At times pt too tired and not able to stand and needing to use the FWW in front of her to help push up from as able to stabilize the FWW and assist at gait belt to come to lift. Encouraged pt to push up from surfaces coming to stand from if able. OT- Balance Assessment Sitting Balance and Reactions Static Sitting Balance Ability Good Dynamic Sitting Balance Ability Fair Standing Balance and Reactions Static Standing Balance Ability Fair M9 OT- IP Assessment and Plan Start: 09/11/21 13:48 Freq: Status: Active Protocol: Document 09/11/21 11:02 [facility] (Rec: 09/11/21 14:09 [facility] [id number]) OT Summary Assessment and Plan Potential Rehabilitation Potential Good Analytic Complexity at Evaluation Low Summary OT Impairments Pain,Balance,Functional Cognition,Functional Mobility, Grooming,Dressing,Toileting, Bathing,Toilet Transfers, Shower Transfers,Activity Tolerance Progress Towards Goals Progressing Toward Goals Assessment Summary Pt low complexity and able to go over caregiver training for ADL needs of for showering/ dressing, and toileting needs . Pt's able to show and demonstrate good safety. Encourage pt and her to communicate well and have things set-up prior to doing a shower. Pt looking to go home when medically stable. Goals Dressing Goal Minimal Assistance Toileting Goal Minimal Assistance Bathing Goal Minimal Assistance Toilet Transfer Goal Independent Shower Transfer Goal Independent,Contact Guard Assistance Patient/Caregiver Education Goal Demonstrate Post-Op Precautions,Caregiver Independent Assisting Patient Days to Meet Goals 5 Frequency of Treatment Frequency Of Treatment Once a Day Treatment Plan OT Treatment Plan ADL Training,Functional Cognition Training,Functional Mobility,Patient/Family Education,Discharge Planning Discharge Recommendations OT Discharge Recommendations Home with 24/7 Assist Available Home Equipment Needs Grab bars for shower, RTS with handles, shower chair with arms
--- NOTE | 2021-09-11 13:47 | P.DS_ITS ---
History of Present Illness History of Present Illness Date Patient Seen: 09/11/21 Time Patient Seen: 13:48 Chief complaint: TLIF *OPB* Narrative: See progress note Discharge Providers Provider Date of admission: 09/09/21 08:49 Discharge Date: 09/11/21 Primary care physician: Chago Marquez MD Consults: 09/09/21 16:01 Consult to Occupational Therapy Evaluate & Treat Comment: Physician Instructions: Evaluate and treat Consult to Physical Therapy Evaluate & Treat Comment: Physician Instructions: Evaluate and Treat Discharge provider: Marcellus Elizabeth PA-C Summary Hospital Course Discharge Diagnosis: 1. L4-5 spinal stenosis with neurogenic claudication 2. Lumbar spondylosis with radiculopathy Hospital Course: 1. L4-5 Postero-lateral and posterior interbody fusion 2. L4-5 interbody cage placement. 3. L4-5 decompressive laminectomy with bilateral facetecomies 4. L4-5 Posterior non-segmental instrumentation 5. [place] of bone marrow from iliac crest 6. Utilization of microsurgical technique and operating microscope Same procedure as scheduled: Yes Indications: Patient has been having chronic back pain and worsening lumbar radiculopathy. Patient failed multiple conservative management with worsening pain weakness and numbness in her lower extremity.? Patient has been having difficulty performing activity of daily living.? After discussing risks benefits of treatment options, patient elected proceed with surgery. Surgeon: Katarina Brock Potable Water Treatment Operator: Janette Tejeda Click Yes if Unassisted: No Anesthesia Type: General Operative Notes Closure Type: primary Specimen(s): none sent Prosthetic devices, grafts, tissues, transplants, or devices: Globus revolve screws, Rise cage Estimated Blood Loss (mL): 50 Blood products transfused: none Patient admitted to the hospital for the above-mentioned procedure. Patient taken to the operating room September 09, 2021. Patient back in her room recovering well as in stable condition. Discharge home today in stable condition. Exam Vital Signs (past 8 hours): - 09/11/21 09:00 Temperature 97.5 F L Pulse Rate 117 H Respiratory Rate 16 Blood Pressure 120/70 Pulse Oximetry 93 Oxygen Delivery Method Room Air Oxygen Flow Rate 0 Narrative Exam Narrative: See progress note PFSH Medical History Easy bruisability GERD (gastroesophageal reflux disease) Hearing impaired Hypothyroid Osteoarthritis PONV (postoperative nausea and vomiting) Pre-diabetes Sciatica Spinal stenosis of lumbar region Surgical History Hx of dilation and curettage Hx of thumb surgery Status post unicompartmental knee replacement, right Social History household members: spouse and children Smoking Status: Former smoker alcohol intake: current Discharge Assessment & Plan Assessment and Plan Assessment: Patient progressing as expected Plan of Treatment: Discharge home today in stable condition Discharge Plan Discharge Plan Patient Disposition: Home Discharge orders & Medications Prescriptions: New acetaminophen 325 mg Tablet 650 mg PO Q6HR PRN (Reason: Pain, Mild (1-3)) Qty: 60 0RF docusate sodium 100 mg Capsule 100 mg PO BID Qty: 30 0RF oxycodone 5 mg Tablet 10 mg PO Q3HR PRN (Reason: Pain, Severe (7-10)) Qty: 60 0RF hydroxyzine pamoate 25 mg Capsule 25 mg PO Q4HR PRN (Reason: Nausea And Vomiting) Qty: 45 0RF hydromorphone [Dilaudid] 2 mg tablet 2 mg PO Q6H PRN (Reason: pain) Qty: 20 0RF Rx Instructions: Take 1 tablet every 6 hours as needed for breakthrough pain Continued omeprazole 20 mg Capsule,Delayed Release(Dr/Ec) 20 mg PO DAILY 0RF levothyroxine 112 mcg Tablet 112 mcg PO DAILY 0RF Follow up/Referrals: Katarina Brock MD [Physician] - (2 weeks) Chago Marquez MD [Primary Care Provider] - Discharge Health Status Multidrug resistant organism: No MDRO Diet/Activity/Treatments Diet: Diet as Tolerated Activity: Limit bending, lifting, twisting Skin/Wound/Dressing Care Report to your healthcare provider any signs of infection, such as:: chills, fever, night sweats, increased pain, unusual drainage and unusual redness Dressing: Keep dressing clean and dry Visit Report/Discharge Packet Instructions: DI for Prescription Opioid Use, DI for Transforaminal Lumbar Interbody Fusion Stand Alone Forms: Surgery Discharge Discharge Data Primary Care Provider: Chago Marquez Attending Provider: Katarina Brock Quality VTE Deep Vein Thrombosis/Pulmonary Embolism Present on Admission: No
== END 2021-09-11 15:18 | disposition home or self-care (01) ==
LOC: OR 08:51 → AC 08:51
PROVIDERS: Admitting Provider Orthopaedic Surgery Orthopaedic Surgery of the Spine; PCP Family Medicine; Referring Provider Orthopaedic Surgery Orthopaedic Surgery of the Spine; Visit Provider Orthopaedic Surgery Orthopaedic Surgery of the Spine
PROC: (CPT 22633; principal; 2021-09-09 10:45)
DX: M48.062 Spinal stenosis, lumbar region with neurogenic claudication (principal); M47.26 Other spondylosis with radiculopathy, lumbar region; E66.9 Obesity, unspecified; K21.9 Gastro-esophageal reflux disease without esophagitis; Z68.37 Body mass index [BMI] 37.0-37.9, adult
CPT/HCPCS: 22633; 63047; 22853; 22840; 20939; 72100; 76000; 82962; 97162; 97165; 97530; 97535; C1776; G0378; C9290; J0171; J0330; J0690; J1170; J2060; J2250; J2704; J3010; J3410